=== PATIENT | female | born 1985 | race Hispanic/Latino ===

== ENCOUNTER 2021-02-08 12:48 | Emergency (ER) | payer OTHER ==
[~2021-02-08] VITALS: Ht 170.2 cm; Wt 68.6 kg
[2021-02-08 12:49] VITALS: BP 119/80
[2021-02-08 13:44] LABS: URINE PREG TEST NEGATIVE (NEGATIVE)
--- NOTE | 2021-02-08 15:09 | REP ---
INDICATION: flank pain/blood in urine. COMPARISON: None. TECHNIQUE: Standard helical technique without intravenous or oral bowel preparatory contrast administration. Stone protocol utilized secondary to flank pain. FINDINGS: In the left lung base CP angle there is a pleural based 5 mm size nodule.. Limited evaluation of the solid intra-organs and gallbladder show no abnormalities. Limited evaluation of the pancreas, adrenal glands, and kidneys show no abnormalities. There is no nephroureterolithiasis, hydronephrosis, or hydroureter. There are no urinary bladder calcifications. There are bilateral pelvic phleboliths. There is no free fluid or free air. Limited evaluation of the bowel loops and the mesenteries show no abnormalities. The osseous structures are within normal limits. IMPRESSION: CT findings, as described above, are within normal limits with the exception of a 5 mm size nodule seen in the left lung base. Since are no priors comparison and according to the revised Fleischner society criteria this warrants further investigation with CT of the chest if clinically relevant. <Electronically signed by Fidel Wick > 02/08/21 [id number]
[2021-02-08 15:11] LABS: BASO # 0.1 10^3/uL (0.0-0.2); BASO % 0.5 % (0.0-1.0); EOS # 0.1 10^3/uL (0.0-0.5); EOS % 1.2 % (0.0-3.0); HEMATOCRIT 36.4 % (36.0-47.0); HEMOGLOBIN 11.8 g/dl (12.0-15.5); LYMPH # 2.2 10^3/uL (1.5-5.0); LYMPH % 23.2 % (24.0-44.0); MEAN CORPUSCULAR HEMOGLOBIN 29.7 pg (27.0-33.0); MEAN CORPUSCULAR HGB CONC 32.4 g/dl (32.0-36.5); MEAN CORPUSCULAR VOLUME 91.7 fl (80.0-96.0); MONO # 0.7 10^3/uL (0.0-0.8); MONO % 7.6 % (2.0-8.0); NEUTROPHILS # 6.4 10^3/uL (1.5-8.5); NEUTROPHILS % 67.1 % (36.0-66.0); PLATELET COUNT, AUTOMATED 217 10^3/uL (150-450); RED BLOOD COUNT 3.97 10^6/uL (4.00-5.40); WHITE BLOOD COUNT 9.5 10^3/uL (4.0-10.0)
[2021-02-08] MEDS ORDERED: CIPR-249 PO (15:20)
[2021-02-08] MEDS ORDERED: PYRI1TAB5 PO (15:25)
[2021-02-08 15:37] LABS: BLOOD UREA NITROGEN 12 MG/DL (7-18); CALCIUM LEVEL 8.8 MG/DL (8.5-10.1); CARBON DIOXIDE LEVEL 28 MEQ/L (21-32); CHLORIDE LEVEL 106 MEQ/L (98-107); CREATININE FOR GFR 0.65 MG/DL (0.55-1.30); GLOMERULAR FILTRATION RATE > 60.0 (>60); GLUCOSE, FASTING 82 MG/DL (70-100); POTASSIUM SERUM 4.1 MEQ/L (3.5-5.1); SODIUM LEVEL 141 MEQ/L (136-145)
[2021-02-08] MEDS ORDERED: IBUPROFEN 600MG TAB PO ONE (15:40)
[2021-02-08 16:36] LABS: GC DNA AMPLIFICATION NEGATIVE (NEGATIVE)
--- NOTE | 2021-02-14 10:21 | ED PDOC ---
Post-Departure Follow-Up Saw patient culture was back and showed that bacteria was S. Saprophyticus. Call ed patient to tell her I was going to change her antibiotic but she is now [place] of [place]. Told her the antibiotics the bacteria was susceptible and to call her doctor there to get a new antibiotic/evaluation. Patient was very appreciative for the call. MATHEW OCONNELL PA-C Feb 14, 2021 10:21
== END 2021-02-08 15:48 | disposition home or self-care (01) ==
LOC: M ED 12:48
DX: N39.0 Urinary tract infection, site not specified (principal); R30.0 Dysuria